=== PATIENT | male | born 1970 | race American Indian/Alaskan Native ===

== ENCOUNTER 2019-06-25 20:56 | Emergency (ER) | payer SELFPAY ==
[2019-06-25 21:42] VITALS: BP 127/85
[2019-06-25] MEDS ORDERED: IBUPROFEN 600 MG TAB PO ONE ×2 (22:13→22:14)
--- NOTE | 2019-06-25 22:16 | Event Note ---
ED Screening Note Date of service: 06/25/19 Time: 22:13 ED Screening Note: 48 y o male presents with left ear pain and loss of hearing x 2 days pt states a week ago he kept hearing a popping noise in ear and now pain is worsening This initial assessment/diagnostic orders/clinical plan/treatment(s) is/are subject to change based on patients health status, clinical progression and re- assessment by fellow clinical providers in the ED. Further treatment and workup at subsequent clinical providers discretion. Patient/guardian urged not to elope from the ED as their condition may be serious if not clinically assessed and managed. Initial orders include: motrin in triage
== END 2019-06-25 21:45 | disposition left against medical advice (07) ==
LOC: ED 20:56
DX: H92.02 Otalgia, left ear (principal); Z53.21 Procedure and treatment not carried out due to patient leaving prior to being seen by health care provider

== ENCOUNTER 2019-07-07 17:29 | Emergency (ER) | payer SELFPAY ==
--- NOTE | 2019-07-07 17:46 | Emergency Department Report ---
Blank Doc - Documentation Documentation: 48-year-old male that presents with left shoulder pain. This initial assessment/diagnostic orders/clinical plan/treatment(s) is/are subject to change based on patient's health status, clinical progression and re- assessment by fellow clinical providers in the ED. Further treatment and workup at subsequent clinical providers discretion. Patient/guardians urged not to elope from the ED as their condition may be serious if not clinically assessed and managed. Initial orders include: 1- Patient sent to [facility] for further evaluation and treatment 2- xrays
[2019-07-07] MEDS ORDERED: IBUPROFEN 600 MG TAB PO ONE ×2 (17:47→17:49)
--- NOTE | 2019-07-07 18:19 | XRay Report ---
HISTORY:Trauma, pain COMPARISON: None. TECHNIQUE: AP lateral and obliques views were obtained FINDINGS: Bones: No fracture or dislocation. Joint spaces: Maintained. Soft tissues: No significant abnormality. Additional findings: None. IMPRESSION: 1. No significant abnormality. Signer Name: Toan Navarro MD Signed: 07/07/2019 6:15 PM Workstation Name: [id number]
[2019-07-07] MEDS ORDERED: HYDROcodone/ACETAMINOPHEN 10-325MG TAB PO ONE (20:43)
[2019-07-07] MEDS ORDERED: HYDROcodone/ACETAMINOPHEN 5-325 MG TAB ONE (20:46)
[2019-07-07] MEDS ORDERED: HYDROcodone/ACETAMINOPHEN 5-325 MG TAB PO ONE (20:47)
[2019-07-07] MEDS ORDERED: KETOROLAC 30 MG/1 ML INJ IM ONE (22:59)
--- NOTE | 2019-07-07 23:05 | Emergency Department Report ---
Upper Extremity - HPI Chief Complaint: Shoulder Injury Stated Complaint: LFT SHOULDER BONE/PAIN Time Seen by Provider: 07/07/19 17:45 Upper Extremity: Left Shoulder Occurred When: 2 Days Mechanism: Unsure Symptoms: Yes Pain with Movement, No Deformity, No Limited Range of Movement, No Numbness, No Weakness, No Swelling, No Bruising/Ecchymosis, No Laceration or Abrasion Other History: Mr. Silveira is a 48 yo male with hx of asthma and shoulder dislocation who presents with left shoulder pain for 2 days after moving a large load of furniture. He has achy moderately severe left shoulder pain worse with movement. He denies fever, chest pain, trauma. ED Review of Systems ROS: Stated complaint: LFT SHOULDER BONE/PAIN Other details as noted in HPI Constitutional: denies: fever, malaise Respiratory: denies: cough Cardiovascular: denies: chest pain Gastrointestinal: denies: abdominal pain, nausea, vomiting Skin: denies: rash, lesions Neurological: denies: headache ED Past Medical Hx - Past Medical History Previous Medical History?: Yes Hx Asthma: Yes - Surgical History Past Surgical History?: Yes Additional Surgical History: R wrist sx - Social History Smoking Status: Never Smoker Substance Use Type: None - Medications Home Medications: Home Medications Medication Instructions Recorded Confirmed Last Taken Type oxyCODONE /ACETAMINOPHEN [Percocet 1 tab PO Q6HR PRN #10 tablet 11/12/14 Unknown Rx 5/325] HYDROcodone/APAP 5-325 [[place] 1 each PO Q6HR PRN #10 tablet 07/07/19 Unknown Rx 5/325] Ibuprofen [Motrin 400 MG tab] 400 mg PO TID 5 Days #15 tablet 07/07/19 Unknown Rx Upper Extremity Exam - Exam General: Vital signs noted. No distress. Alert and acting appropriately. Head and Torso: No HEENT Abnormality, No Neck Tenderness, No Chest/Lungs Abnormality, No Abdominal Tenderness Shoulder Exam: Yes Normal Range of Motion in Shoulder, No Shoulder Tenderness, No Clavicle Tenderness, No Shoulder Deformity, No AC Joint Tenderness Arm Exam: No Arm/Humerus Tenderness, No Arm Deformity Elbow: No Elbow Tenderness, No Normal Range of Motion in Elbow, No Elbow Deformity Forearm: No Forearm Tenderness, No Forearm Deformity, No Pain with Pronation, No Pain with Supination Wrist: Yes Normal ROM in Wrist, No Wrist Tenderness, No Wrist Deformity, No Snuffbox Tenderness, No Pain with Axial Thumb Compression Hand: Yes Normal ROM in Digit(s), No Hand Tenderness, No Hand Deformity, No Digit Tenderness, No Digit(s) Deformity, No Tendon Dysfunction CMS Exam: Yes Normal Distal Pulses, Yes Normal Capillary Refill, Yes Normal Distal Sensation, No Broken Skin ED Course Vital Signs 07/07/19 07/07/19 07/07/19 18:04 18:06 19:06 Temperature 98 F Pulse Rate 68 Respiratory 20 18 18 Rate Blood Pressure 134/75 O2 Sat by Pulse 96 Oximetry 07/07/19 07/07/19 20:47 20:48 Temperature Pulse Rate Respiratory 20 20 Rate Blood Pressure O2 Sat by Pulse Oximetry ED Medical Decision Making - Radiology Data Radiology results: report reviewed Left shoulder radiographs no acute process according to radiology impression - Medical Decision Making Left shoulder pain: Overuse injury versus rotator cuff injury: Recommended rest ice NSAIDs. Prescribed ibuprofen and [place]. Referred to orthopedic surgeon no indication of septic joint. Critical care attestation.: If time is entered above; I have spent that time in minutes in the direct care of this critically ill patient, excluding procedure time. ED Disposition Clinical Impression: Left shoulder pain Disposition: DC-01 TO HOME OR SELFCARE Is pt being admited?: No Does the pt Need Aspirin: No Condition: Stable Instructions: Shoulder Sprain (ED), Rotator Cuff Injury (ED) Prescriptions: Ibuprofen [Motrin 400 MG tab] 400 mg PO TID 5 Days #15 tablet HYDROcodone/APAP 5-325 [[place] 5/325] 1 each PO Q6HR PRN #10 tablet PRN Reason: Pain Referrals: ARIANNA GONZALEZ MD [Staff Physician] - 3-5 Days
[2019-07-07 23:29] VITALS: BP 108/75
== END 2019-07-07 23:29 | disposition home or self-care (01) ==
LOC: ED 17:29
DX: M25.512 Pain in left shoulder (principal); J45.909 Unspecified asthma, uncomplicated; Z98.890 Other specified postprocedural states; Z79.899 Other long term (current) drug therapy; X50.0XXA Overexertion from strenuous movement or load, initial encounter; Y93.89 Activity, other specified; Y92.89 Other specified places as the place of occurrence of the external cause; Y99.8 Other external cause status
CPT/HCPCS: 73030; 96372; 99283; J1885

== ENCOUNTER 2019-07-22 13:55 | Emergency (ER) | payer SELFPAY ==
[2019-07-22 14:29] VITALS: BP 137/83
[2019-07-22] MEDS ORDERED: ACETAMINOPHEN 325 MG TAB PO ONE (14:56)
--- NOTE | 2019-07-22 14:59 | Event Note ---
ED Screening Note Date of service: 07/22/19 Time: 14:57 ED Screening Note: 48 YO male c/o lower back pain . Denies any recent falls or injuries. State he has hx of chronic low back pain . This initial assessment/diagnostic orders/clinical plan/treatment(s) is/are subject to change based on patients health status, clinical progression and re- assessment by fellow clinical providers in the ED. Further treatment and workup at subsequent clinical providers discretion. Patient/guardian urged not to elope from the ED as their condition may be serious if not clinically assessed and managed. Initial orders include: UA Tylenol 650 mg po.
== END 2019-07-22 17:38 | disposition left against medical advice (07) ==
LOC: ED 13:55
DX: R10.9 Unspecified abdominal pain (principal); Z53.21 Procedure and treatment not carried out due to patient leaving prior to being seen by health care provider